=== PATIENT | male | born 1965 | race Caucasian/White ===

== ENCOUNTER 2017-11-18 09:18 | Day surgery (SDC) | payer MEDICARE, MEDICAID ==
--- NOTE | 2017-11-17 15:27 | HP ---
CC: Dr. Sean Tee, Family Medicine * ADMISSION HISTORY AND PHYSICAL: DATE OF ADMISSION: 11/18/17 ATTENDING SURGEON: Dr. Esteban Aden.* (DICTATED BY SUMAYA THOMPSON) CHIEF COMPLAINT: Epigastric hernia. HISTORY OF PRESENT ILLNESS: This is a 52-year-old generally healthy male, who has undergone multiple previous abdominal surgeries including a laparoscopic cholecystectomy in 2005. Beginning around 2008, the patient noticed a lump at the mid epigastric/subxiphoid laparoscopic incision site. He was seen by Dr. Aden at that time, but as it was small and asymptomatic, no surgical intervention was recommended. However, more recently in the past couple of weeks and possibly related to some increased lifting, Mr. Ahuja has noticed an increase in the size of the bulge and some associated discomfort. He denies nausea, vomiting, or anything to suggest incarceration or strangulation. He was seen by Dr. Aden on 11/10/17, at which time exam confirmed the presence of a small somewhat tender, but reducible epigastric incisional hernia. Dr. Aden has discussed with him the recommendation for repair including the indications, risks, benefits, and alternatives. The patient understands the expected perioperative course and would like to proceed as scheduled with open repair of epigastric hernia. He understands that the employment of mesh may be decided at the time of the surgery. PAST MEDICAL HISTORY: History of ADHD, anxiety, alcohol syndrome. His medical records indicate history of hyperlipidemia, though he is not being treated for same and believes that his cholesterol is normal. PAST SURGICAL HISTORY: Previous surgeries include an umbilical hernia repair with related small bowel resection for an incarcerated hernia in 2003, laparoscopic cholecystectomy in 2005 with incidental open right inguinal hernia repair with mesh. He has also undergone multiple foot and eye surgeries as well as an operative fixation of the right femur fracture when he was a teenager. He reports no problems related to any of those surgeries. CURRENT MEDICATIONS: None. DRUG ALLERGIES: None. FAMILY HISTORY: Notable for his sister having multiple allergies and she states that she almost related to anesthesia in the past whereas the patient has not had any reported problems. No known family history of bleeding or clotting disorders. SOCIAL HISTORY: The patient lives with his sister, who is present with him today and supplements some of his historical details. He works as a captain waiter/waitress. He is a former smoker who quit 11 to 12 years ago. He denies use of alcohol or other recreational drugs. REVIEW OF SYSTEMS: General: No recent constitutional symptoms or acute illnesses. His weight has been stable. HEENT: No problems reported. He did have tooth filling done this morning at the dentist's office. Cardiovascular: No history of hypertension, chest pain, or palpitations. He may have had a murmur noted as a child, but not in recent years. Respiratory: No history of asthma, chronic cough, or shortness of breath. GI: No problems reported. He underwent Cologuard testing within the past year, which he stated was normal. : No problems reported. Endocrine: No diabetes or thyroid dysfunction. Musculoskeletal: No problems reported. Neuro/Psych: As above. No additions. PHYSICAL EXAMINATION GENERAL: Well-nourished, well-developed, and in no acute distress. VITAL SIGNS: Height 5 feet 8 inches, weight 170 pounds. Blood pressure 128/70 , pulse 84, respirations 18. HEENT: Pupils are equal, round, and reactive. EOMs intact. No conjunctival pallor. Oropharynx: Some missing teeth. No intraoral lesions. NECK: No lymphadenopathy, thyromegaly, or masses. LUNGS: Clear to auscultation. No wheezes. HEART: Regular rate and rhythm. No murmur appreciated. ABDOMEN: Multiple well-healed laparoscopic as well as midline periumbilical incisions. He does have some diastasis in the upper abdomen. Just above this in the region of the epigastric/subxiphoid laparoscopic incision site is a small soft bulge, which is mildly tender to palpation. I did not attempt to reduce it today. The remainder of the abdomen is soft and without palpable masses or organomegaly. No palpable inguinal hernias. GENITALIA: Otherwise normal. Normal testes. RECTAL: Not done. BACK: No spinous process or CVA tenderness. EXTREMITIES: No edema, though he does have what appeared to be some chronic nonpitting edema of the right lower extremity presumably related to his prior trauma and surgery. There are some varicosities present. No open lesions. NEUROLOGICAL: Grossly intact. SKIN: Warm and dry. No suspicious rashes or lesions noted. IMPRESSION: Epigastric incisional hernia. PLAN: Open repair of epigastric hernia. ELLIE SHAW, SUMAYA [id number]/[facility] #: [id number] MATTEO
[~2017-11-18 09:18] MED LIST: Buffered Lidocaine 0.9% SYRIN* 5 ML/SYR SYRINGE INTRADERM ONE; Dexamethasone IV* 4 MG/ML 1 ML (4 MG) IV SLOW PU ONE; Famotidine IV* 10 MG/ML 2 ML (20 mg) IV ONE
[2017-11-18] MEDS ORDERED: Famotidine IV* 10 MG/ML 2 ML (20 mg) ONE (09:31)
[2017-11-18] MEDS ORDERED: ceFAZolin 2 GM in NS PREMIX(*) 2 GM/100 ML BAG IVPB ONE (09:31)
[2017-11-18] MEDS ORDERED: Dexamethasone IV* 4 MG/ML 1 ML (4 MG) ONE (09:31)
[2017-11-18] MEDS ORDERED: Midazolam* 1 MG/ML 2 ML VIAL (2 MG) ONE (10:02)
[2017-11-18] MEDS ORDERED: fentaNYL* 50 MCG/ML 2 ML VIAL (100 MCG VIAL) ONE (10:02)
[2017-11-18] MEDS ORDERED: Lidocain 1% EPI 1:100,000 * 30 ML MDV ONE (10:27)
[2017-11-18] MEDS ORDERED: Bupivacaine 0.5% SDV PF* 30ML VIAL ONE (10:27)
[2017-11-18] MEDS ORDERED: Propofol* 10 MG/ML 20 ML BTL IV PUSH ONE (11:22)
[2017-11-18] MEDS ORDERED: Ondansetron INJ* 2 MG/ML VIAL ONE (11:22)
[2017-11-18] MEDS ORDERED: Naloxone* 0.4 MG/ML 1 ML VIAL IV PRN (11:40)
[2017-11-18 12:49] VITALS: BP 110/71
--- NOTE | 2017-11-26 08:59 | OP ---
CC: Sean Tee MD * DATE OF OPERATION: 11/18/17 - SDS DATE OF : 63 SURGEON: Esteban Aden MD MAKE UP OPERATOR: None. ANESTHESIOLOGIST: Dr. Stover. ANESTHESIA: Local MAC. PRE-OP DIAGNOSIS: Epigastric incisional hernia. POST-OP DIAGNOSIS: Epigastric incisional hernia. OPERATIVE PROCEDURE: Open repair, epigastric incisional hernia. ESTIMATED BLOOD LOSS: Minimal. IV FLUIDS: Crystalloids. SPECIMENS: None. DRAINS: None. COMPLICATIONS: None. COUNTS: The instrument, needle, and sponge counts were correct. DESCRIPTION OF PROCEDURE: The patient was brought to the operating room and placed on the table supine. He was administered intravenous sedation. He was prepped and draped in the usual sterile fashion and a time-out was performed. Local anesthetic was infiltrated into the skin and soft tissues surrounding the epigastric scar which was from a previous laparoscopic cholecystectomy. The incision was made transversely through the existing scar, and subcutaneous tissues were divided using blunt dissection and cautery and the hernia was identified. The contents were fat and this was reduced. The edges of the hernia were identified and cleaned to healthy fascia. The hernia was approximately 2 cm in size and this was closed primarily with interrupted figure -of-eight with 0 Ethibond suture. The wound was then closed with 4-0 Monocryl in a running subcuticular fashion and Steri- strips were applied with dry dressing. The patient tolerated the procedure well and was transferred to Recovery in stable condition. [id number]/[facility] #: [id number] MTDD
== END 2017-11-18 13:18 | disposition home or self-care (01) ==
LOC: OR 09:18
PROVIDERS: ATTEND Surgery
DX: K43.2 Incisional hernia without obstruction or gangrene (principal); Z87.891 Personal history of nicotine dependence; F41.8 Other specified anxiety disorders; F79 Unspecified intellectual disabilities; Z87.442 Personal history of urinary calculi
CPT/HCPCS: J0690; J1100; J2250; J2405; J2704; J3010

== ENCOUNTER 2018-03-03 17:05 | Emergency (ER) | payer MEDICARE, MEDICAID ==
[2018-03-03] MEDS ORDERED: Sucralfate TAB* 1 GM PO ONE (17:17)
[2018-03-03] MEDS ORDERED: NS 0.9% 1000 ML* 1,000 ML IV ONE (17:17)
[2018-03-03] MEDS ORDERED: Pantoprazole IV* 40 MG IV ONE (17:17)
--- NOTE | 2018-03-03 17:40 | ED ---
Abdominal Pain/Male - HPI Summary HPI Summary: This patient is a 52 year old M brought in by EMS to [facility] accompanied by an older woman with a chief complaint of intermittent ABD pain for the last couple days. Today at 1330 the pain began and he rates it 10/10 at the worst. The patient rates the pain 5/10 in severity. Patient reports vomiting. Pt received zofran in route. The pain is in no other region in the ABD except for the epigastrium. The patient has had a cholecystectomy and multiple hernia repairs in the past. - History of Current Complaint Chief Complaint: EDAbdPain Stated Complaint: ABD PAIN Hx Obtained From: Patient Onset/Duration: Still Present Timing: Constant Severity Initially: Moderate Severity Currently: Moderate Pain Intensity: 5 Pain Scale Used: 0-10 Numeric Location: Epigastric Radiates: No Associated Signs And Symptoms: Positive: Vomiting - Allergies/Home Medications Allergies/Adverse Reactions: Allergies Allergy/AdvReac Type Severity Reaction Status Date / Time No Known Allergies Allergy Verified 11/18/17 09:30 PMH/Surg Hx/FS Hx/Imm Hx History: Reports: Hx Kidney Stones - A FEW YEARS AGO- Sensory History: Reports: Hx Contacts or Glasses - GLASSES Denies: Hx Hearing Aid Opthamlomology History: Reports: Hx Contacts or Glasses - GLASSES Neurological History: Reports: Other Neuro Impairments/Disorders - DEVELOPMENTAL DISABILITY Psychiatric History: Reports: Hx Anxiety - MILD , PTSD, Hx Depression - RESOLVED - Cancer History Hx Chemotherapy: No - Surgical History Surgery Procedure, Year, and Place: MULTIPLE EYE AND ORAL SURGERIES A CHILD. RIGHT LOWER EXTREMITY ORIF. 2003 RIGHT SINUS SURGERY. 2004 INCARCERATED UMBILICAL HERNIA REPAIR WITH SMALL BOWEL RESECTION. 2005 LAPAROSCOPIC REPAIR VENTRAL INCISIONAL HERNIA. 2006 LAPAROSCOPIC CHOLEYCYSTECTOMY, OPEN RIGHT INGUINAL HERNIA REPAIR Hx Anesthesia Reactions: No Infectious Disease History: No Infectious Disease History: Denies: Traveled Outside the [place] in Last 30 Days - Family History Known Family History: Positive: Other - NONCONTRIBUTORY - Social History Alcohol Use: None Substance Use Type: Reports: None Hx Tobacco Use: No Smoking Status (MU): Former Smoker Physical Exam Vital Signs On Initial Exam: Initial Vitals Temp Pulse Resp BP Pulse Ox 97.5 F 81 16 120/86 95 03/03/18 17:06 03/03/18 17:06 03/03/18 17:06 03/03/18 17:06 03/03/18 17:06 Diagnostics - Vital Signs Vital Signs Temp Pulse Resp BP Pulse Ox 03/03/18 17:06 97.5 F 81 16 120/86 95 - Laboratory Result Diagrams: 03/03/18 17:32 03/03/18 17:32 Lab Statement: Any lab studies that have been ordered have been reviewed, and results considered in the medical decision making process. - CT CT ABD/Pelvis CT Interpretation Completed By: Radiologist Summary of CT Findings: Left-sided diverticulitis without perforation or abscess. ED physician has reviewed this radiology report. Abdominal Pain Fem Course/Dx - Diagnoses Provider Diagnoses: Diverticulitis Discharge - Sign-Out/Discharge Documenting (check all that apply): Patient Departure - Discharge Plan Condition: Stable Disposition: HOME Patient Education Materials: Diverticulitis (ED) Referrals: Sean Tee MD [Primary Care Provider] - 2 Days Additional Instructions: RETURN TO THE EMERGENCY DEPARTMENT FOR CHANGING OR WORSENING SYMPTOMS - Attestation Statements Document Initiated by Scribe: Yes Documenting Scribe: Yogi Jordan Provider For Whom Scribe is Documenting (Include Credential): Kasi Trejo MD Scribe Attestation: Yogi Mike , scribed for Kasi Trejo MD on 03/03/18 at 0961. Status of Scribe Document: Ready
[2018-03-03] MEDS ORDERED: HYDROmorphone INJ1* 1 MG/ML SYRINGE IV SLOW PU ONE (18:31)
[2018-03-03 18:35] LABS: ABS Basophils 0 10^3/ul (0-0.2); ABS Eosinophils 0 10^3/ul (0-0.6); ABS Lymphocytes 0.9 10^3/ul (1.0-4.8); ABS Monocytes 0.8 10^3/ul (0-0.8); ABS Neutrophils 12.3 10^3/ul (1.5-7.7); ABS Nucleated RBC 0 10^3/ul; Eosinophil % 0.3 %; Hematocrit 41 % (42-52); Hemoglobin 13.9 g/dl (14.0-18.0); Lymphocyte % 6.6 %; Mean Corpuscular HGB Conc 34 g/dl (31-36); Mean Corpuscular Hemoglobin 30 pg (27-31); Mean Corpuscular Volume 89 fL (80-94); Mean Platelet Volume 11.1 fL (7.4-10.4); Nucleated Red Blood Cells % 0; Platelet Count 146 10^3/ul (150-450); Red Blood Count 4.65 10^6/ul (4.00-5.40); Red Cell Distribution Width 13 % (10.5-15); White Blood Count 14.1 10^3/ul (3.5-10.8)
[2018-03-03 18:51] LABS: ALT 11 U/L (7-52); AST 13 U/L (13-39); Albumin 4.2 g/dL (3.2-5.2); Albumin/Globulin Ratio 1.9 (1-3); Alkaline Phosphatase 51 U/L (34-104); Anion Gap 8 mmol/L (2-11); BUN/Creatinine Ratio 11.7 (8-20); Blood Urea Nitrogen 13 mg/dL (6-24); CO2 Carbon Dioxide 25 mmol/L (22-32); Calcium 8.7 mg/dL (8.6-10.3); Chloride 107 mmol/L (101-111); EGFR Non-African American 69.3 (>60); Globulin 2.2 g/dL (2-4); Glucose 98 mg/dL (70-100); Potassium 3.8 mmol/L (3.5-5.0); Sodium 140 mmol/L (135-145); Total Protein 6.4 g/dL (6.4-8.9)
[2018-03-03 19:50] LABS: C Reactive Protein 2.42 mg/L (<8.01)
[2018-03-03 20:04] LABS: Urine Appearance Clear; Urine Bilirubin Negative (Negative); Urine Blood Negative (Negative); Urine Color Yellow; Urine Glucose Negative (Negative); Urine Ketones 1+ (Negative); Urine Nitrite Negative (Negative); Urine Protein Negative (Negative); Urine Specific Gravity 1.013 (1.010-1.030); Urine Urobilinogen Negative (Negative)
[2018-03-03] MEDS ORDERED: Ciprofloxacin TAB* 500 MG PO ONE (21:42)
[2018-03-03] MEDS ORDERED: metroNIDAZOLE TAB* 250 MG PO ONE (21:42)
[2018-03-03 22:39] VITALS: BP 108/57
== END 2018-03-03 22:36 | disposition home or self-care (01) ==
LOC: ED 17:05
DX: K57.92 Diverticulitis of intestine, part unspecified, without perforation or abscess without bleeding (principal); R11.10 Vomiting, unspecified
CPT/HCPCS: 36415; 74176; 80053; 81003; 83605; 83690; 84484; 85025; 85610; 86140; 96374; 96375; 99284; A9270-GY; J1170